=== PATIENT | female | born 2000 | race African-American/Black ===

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

== ENCOUNTER 2024-01-06 12:02 | Emergency (ER) | payer MEDICAID, OTHER, SELFPAY ==
[2024-01-06] MEDS ORDERED: Ibuprofen 800 MG TAB ONE (12:54)
== END 2024-01-06 12:58 | disposition home or self-care (01) ==
LOC: NAV ERS 12:02
DX: M79.644 Pain in right finger(s) (principal)
CPT/HCPCS: 99283